=== PATIENT | male | born 1960 | race Caucasian/White ===

== ENCOUNTER 2019-01-25 11:11 | Emergency (ER) | payer BC, SELFPAY ==
[2019-01-25 11:13] VITALS: BP 150/83; PULSE 98; RESP 16; TEMP 36.2; O2SAT 97; BMI 24.4
[2019-01-25] MEDS: Diphth,Pertuss(Acell),Tet Vac 0.5 ML Vial IM (11:37)
--- NOTE | 2019-01-25 11:46 | ED.VISSUMM ---
- ER Visit Summary Date of Service: 01/25/19 Chief Complaint: Thumb laceration History of Present Illness: The patient is a 58 M who was at work today when he sustained a right thumb laceration. He was cutting with a knife. Unknown last tetanus. He is right-handed. Physical Examination: Afebrile vital signs are stable Gen: Well-nourished well-developed Head: Normocephalic atraumatic Eyes: Perrl EOMI ENT: TMs clear no rhinorrhea moist mucous membranes Neck: Supple no lymphadenopathy no JVD nontender CVS: Regular rate rhythm no murmurs normal S1-S2 Respiratory: No distress clear to auscultation bilaterally chest nontender Abdomen: Soft nontender nondistended normal bowel sounds no masses Back: Nontender Extremity: 3.5 cm curvilinear laceration along the lateral aspect of the right thumb. It is full-thickness. There is a small piece of exposed proximal phalanx bone. Neurovascularly intact. No tendon dysfunction no edema Skin: Normal color no rash Neuro: alert orientated ?3 CN II-XII intact normal strength sensation reflexes gait cerebellar Psych: Normal affect normal mood Emergency Department Course and Treatment: The wound was locally anesthetized using 1% lidocaine. It was washed with Shur-Clens and irrigated with 250 cc of sterile saline and explored. There was a small amount of the proximal phalanx on the lateral aspect of the thumb but was exposed. He will be placed on Keflex. The wound was closed using a total of 6 simple interrupted 4-0 Ethilon sutures. Wound care discussed with patient. He will be given a small cage to protect the thumb at work. Impression: 1. 3.5 cm right thumb laceration with repair 2. Tetanus update This note was generated with [employer] dictation software. It may contain incorrect words, spelling, and punctuation that were not noted in review of the chart prior to signing ED Disposition - Plan for ED Patient: Disposition: Home or Assisted Living Instructions: ED Laceration Hand Prescriptions: Cephalexin [Keflex] 500 mg PO Q6 #20 cap Referrals: [facility] PHYSICIANS] - 10 Day for suture removal
== END 2019-01-25 12:00 | disposition home or self-care (01) ==
LOC: ED 11:58
PROVIDERS: Emergency Provider Emergency Medicine
DX: S61.011A Laceration without foreign body of right thumb without damage to nail, initial encounter (principal); W26.0XXA Contact with knife, initial encounter; Y93.9 Activity, unspecified; Y92.9 Unspecified place or not applicable; Y99.0 Civilian activity done for income or pay; Z23 Encounter for immunization; Z72.0 Tobacco use
CPT/HCPCS: 12002; 90471; 90715; 99284